=== PATIENT | female | born 1975 | race Caucasian/White ===

== ENCOUNTER 2024-07-29 09:30 | Emergency (ER) | payer OTHER, MEDICARE ==
[~2024-07-29] VITALS: Ht 167.6 cm; Wt 87.2 kg
[2024-07-29 09:41] VITALS: TEMP 99.6
[2024-07-29 10:28] LABS: BILIRUBIN,URINE NEGATIVE (Neg); CLARITY,URINE CLEAR (Clear); COLOR,URINE STRAW (Yellow); GLUCOSE, URINE NEGATIVE (Neg); KETONES,URINE NEGATIVE (Neg); LEUKOCYTE ESTERASE ,URINE NEGATIVE (Neg); NITRITES, URINE NEGATIVE (Neg); OCCULT BLOOD,URINE NEGATIVE (Neg); PROTEIN,URINE NEGATIVE (Neg); UROBILINOGEN,URINE 0.2 E.U/dL (0.2-1.0)
[2024-07-29 10:30] LABS: URINE HCG NEGATIVE (NEG)
[2024-07-29 10:31] LABS: UA COLLECTION TYPE CLN CATCH MIDSTREAM
[2024-07-29 11:01] VITALS: BP 121/61; PULSE 71; RESP 16; O2SAT 95
[2024-07-31 19:08] LABS: CHLAMYDIA TRACHOMATIS, NAA Negative (Negative)
== END 2024-07-29 11:03 | disposition home or self-care (01) ==
LOC: ER 09:31
DX: N39.0 Urinary tract infection, site not specified (principal)
CPT/HCPCS: 36415; 81003; 81025; 87491; 99283